=== PATIENT | female | born 2000 | race Caucasian/White ===

== ENCOUNTER 2019-07-26 19:21 | Observation (INO) ==
--- OUTSIDE RECORDS SUMMARY | 2019-07-26 19:23 | External Medical Summary | Continuity of Care Document ---
:2000 Author Name Ivon Eldridge Address Unavailable Unavailable , Care Team Providers Name Role Phone Unavailable Unavailable Unavailable Yossi Ayers M.D. Unavailable [email or web address] Yossi Ham PA-C Unavailable [email or web address] PCP, UNKNOWN Unavailable Unavailable Unavailable Unavailable Unavailable Problems Acute conjunctivitis (372.00) (H10.30) Acute pharyngitis (462) (J02.9) Acute otitis media (382.9) (H66.90) Acute sinusitis (461.9) (J01.90) Allergies and Adverse Reactions No Known Allergies (Allergy) Medications Ofloxacin 0.3 % Ophthalmic Solution; ins till 1-2 gtt in bilateral eyes tid for 5-7 days Chente Ayers Start: 27-Jun-2010 Quantity: 1 5 ML Bottle Refills: 0 Amoxicillin 250 MG Oral Capsule; 3 capsules twice a da y for ten days. KIRIT Ham Start: 14-Jul-2010 Quantity: 60 Refills: 0 Procedures Procedures not documented Immunizations Hepatitis B On: 2000 0:00 Hepatitis B On: 2000 0:00 Polio On: 1998 0:00 HIB On: 1998 0:00 DTaP On: 1998 0:00 Polio On: 06-Jan-1999 0:00 HIB On: 06-Jan-1999 0:00 DTaP On: 06-Jan-1999 0:00 Comvax On: 11-Mar-1999 0:00 Polio On: 11-Mar-1999 0:00 DTaP On: 11-Mar-1999 0:00 Varicella On: 05-Oct-1999 0:00 MMR On: 05-Oct-1999 0:00 HIB On: 03-Nov-1999 0:00 DTaP On: 20-Feb-2000 0:00 Polio On: 07-Oct-2003 0:00 DTaP On: 07-Oct-2003 0:00 MMR On: 07-Oct-2003 0:00 Varicella On: 10-Nov-2009 16:05 Lot #: [id number], [employer] Tdap (Adacel) On: 10-Nov-2009 16:05 Lot #: [id number], [employer] Meningo (Menactra) On: 10-Nov-2009 16:05 Lot #: [id number], [employer] HPV (Gardasil) On: 10-Nov-2009 16:05 Lot #: [id number], [employer] HPV (Gardasil) On: 12-Jan-2010 15:28 Lot #: [id number], [employer] Plan of Treatment Planned Observations Planned Goals not documented Results No Known Results Results not documented
--- OUTSIDE RECORDS SUMMARY | 2019-07-26 19:24 | External Medical Summary | Continuity of Care Document ---
:2000 Author Name Ivon Eldridge Address Unavailable Unavailable , Care Team Providers Name Role Phone Unavailable Unavailable Unavailable Yossi Ayers M.D. Unavailable [email or web address] Yossi Ham PA-C Unavailable [email or web address] PCP, UNKNOWN Unavailable Unavailable Unavailable Unavailable Unavailable Problems Acute sinusitis (461.9) (J01.90) Acute otitis media (382.9) (H66.90) Acute pharyngitis (462) (J02.9) Acute conjunctivitis (372.00) (H10.30) Allergies and Adverse Reactions No Known Allergies [...] On: 1998 0:00 Polio On: 1998 0:00 DTaP On: 1998 0:00 HIB On: 1998 0:00 Polio On: 06-Jan-1999 0:00 DTaP On: 06-Jan-1999 0:00 HIB On: 06-Jan-1999 0:00 Comvax On: 11-Mar-1999 0:00 Polio On: 11-Mar-1999 0:00 DTaP On: 11-Mar-1999 0:00 MMR On: 05-Oct-1999 0:00 Varicella On: 05-Oct-1999 0:00 HIB On: 03-Nov-1999 0:00 DTaP On: 20-Feb-2000 0:00 Polio On: 07-Oct-2003 0:00 DTaP On: 07-Oct-2003 0:00 MMR On: 07-Oct-2003 0:00 Varicella On: 10-Nov-2009 16:05 Lot #: [id number], [employer] Tdap (Adacel) On: 10-Nov-2009 16:05 Lot #: [id number], [employer] Meningo (Menactra) On: 10-Nov-2009 16:05 Lot #: [id number], [employer] PA[employer] HPV (Gardasil) On: 10-Nov-2009 16:05 Lot #: [id number], [employer] HPV (Gardasil) On: 12-Jan-2010 15:28 Lot #: [id number], [employer] Plan of Treatment Planned Observations Planned Goals not documented Results No Known Results Results not documented
[2019-07-26] MEDS ORDERED: SODIUM CHLORIDE 0.9% 1000ML 1,000 ML IV ONE (19:35)
--- NOTE | 2019-07-26 19:43 | Emergency Department Note ---
ED Provider Note NAME: HARPAL CALL AGE: 18 SEX: F : 2000 ARRIVES VIA: Walk-In INFORMANT: Patient ED PROVIDER(S): Jay Huffman DO CHIEF COMPLAINT: Loss of vision of left lateral eye HPI: Patient is a 18-year-old female with no significant past medical history that presents the ER for loss of vision out of her left lateral eye. She notes that she was cleaning her car when this occurred. It lasted for about 5 minut es. When it occurred she had paresthesias in her left hand circumferentially tracking up to the left mid forearm. She denies any weakness. No chest pain shortness of breath. No headache. No nausea vomiting or diarrhea. Denies any fevers. No significant past medical history. She does take control. There was no exacerbating or remitting factors. She has never had this before. Again she had no headache prior during or after this instance. Denies any eye pain. No redness in her eyes. No trauma. ROS: See above HPI for pertinent positives & negatives. A total of [10] systems reviewed and were otherwise negative. PAST MEDICAL HISTORY:denies PAST SURGICAL HISTORY:denies FAMILY HISTORY:[place] syndrome SOCIAL HISTORY:none HOME MEDICATIONS: control ALLERGIES:See Below VITALS:See Below PHYSICAL EXAMINATION: GENERAL: Sitting up in bed, alert, well appearing, well nourished, no distress, non-toxic EYE EXAM: normal conjunctiva. PERRL and EOM's intact. OROPHARYNX: no exudate, no erythema, lips, buccal mucosa, and tongue normal and mucous membranes are moist NECK: supple, no nuchal rigidity, no adenopathy, non-tender LUNGS: Clear to auscultation. Normal chest wall mechanics HEART: no murmurs, S1 normal and S2 normal ABDOMEN: abdomen soft, non-tender, normo-active bowel sounds, no masses, no rebound or guarding. BACK: Back is symmetrical on inspection and there is no deformity, no midline tenderness, no CVA tenderness. SKIN: no rashes and no bruising UPPER EXTREMITIES: upper extremities are grossly normal. LOWER EXTREMITIES: No pitting edema. NEURO EXAM: Normal sensorium, cranial nerves II-XII intact, normal speech, no weakness of arms, no weakness of legs. No drift. Finger to nose intact. Gross sensation intact. Rapid alternating movements of upper extremities intact. [id number] intact. Ambulates of difficulty. MEDICAL DECISION MAKING: Patient is a 18-year-old female with no significant past medical history that presents the ER for loss of vision out of her left lateral eye along with paresthesias of the left hand tracking to left mid forearm. Symptoms lasted for 5 minutes. She is completely neurologically intact on my exam. Vitals are stable. No significant past medical history. No fevers. CT head along with CT angios of the head and neck were negative. Chest x-ray was unremarkable. EKG was noncontributory. Labs show no significant leukocytosis or anemia. INR was unremarkable. BMP with mild hypokalemia. LFTs, troponin and bilirubin was unremarkable. After the results of the CT imaging I discussed the case with neurology. They recommend bringing the patient in for MRI as well as possible e cho as this will be unable to be performed as an outpatient. Discussed with Dr. Alvarez and patient was accepted to the hospitalist. Triage Nursing notes reviewed. Prior medical records reviewed Vital Signs: reviewed and remarkable for no significant abnormalities Differential diagnosis: Differential Diagnosis includes but is not limited to ischemic Stroke, hemorrhagic stroke, bells palsy, mass, neoplasm, migraine headache, seizure, subarachnoid hemorrhage, TIA, and transient global amnesia. ER treatment provided: See below Diagnostics interpreted by me: ECG: Sinus rhythm rate of 78 Normal axis No PVCs Right bundle branch block Cardiac Monitoring: Sinus rhythm rate of 71 Laboratory studies: As stated above and show below. Imaging studies: CT of the head was negative. CTA of the head and neck were both negative. Chest x-ray without any focal infiltrate. Consultation(s): Dr. Martinez for evaluation for observation. Dr. Dunn from neurology recommends observation. ED COURSE: Critical Care: None Impression & Plan Acute loss of vision, Arm paresthesia, left Past Med/Surg History Social History Preferred Language: Guatemalan Feels Safe at Home: Yes Smoking Status: Never smoker Results & Data Vital Signs Vital Signs - 24 hr 07/26/19 19:24 07/26/19 19:53 07/26/19 19:55 Temperature 36.7 C Temperature Source Oral Pulse Rate 78 91 H 84 Pulse Rate from SpO2 Sensor Respiratory Rate 18 22 21 Respiratory Effort / Characteristics Non-Labored Respiratory Depth Normal Blood Pressure 129/84 131/89 Blood Pressure Mean 99 95 Pulse Oximetry 97 Oxygen Delivery Method Room Air Sepsis Recent Fever Within 48 Hours No Sepsis Action Taken by Nursing No Action Required 07/26/19 20:00 07/26/19 20:01 07/26/19 20:30 Temperature Temperature Source Pulse Rate 82 88 78 Pulse Rate from SpO2 Sensor 84 88 78 Respiratory Rate 20 17 16 Respiratory Effort / Characteristics Respiratory Depth Blood Pressure 124/82 117/70 Blood Pressure Mean 88 78 Pulse Oximetry 100 100 100 Oxygen Delivery Method Sepsis Recent Fever Within 48 Hours Sepsis Action Taken by Nursing 07/26/19 20:31 Temperature Temperature Source Pulse Rate 80 Pulse Rate from SpO2 Sensor 82 Respiratory Rate 15 Respiratory Effort / Characteristics Respiratory Depth Blood Pressure Blood Pressure Mean Pulse Oximetry 100 Oxygen Delivery Method Sepsis Recent Fever Within 48 Hours Sepsis Action Taken by Nursing Laboratory Data Result diagrams: 07/26/19 20:00 07/26/19 20:00 Lab Results 07/26/19 07/26/19 07/26/19 Range/Units 20:00 20:00 20:00 WBC 6.21 (4.8-10.8) K/uL RBC 4.30 (4.2-5.4) M/uL Hgb 12.3 (12.0-16.0) g/dL Hct 36.0 L (37-47) % MCV 83.7 (80-100) fL MCH 28.6 (25-34) pg MCHC 34.2 (32-36) g/dL RDW Std Deviation 40.4 (36.4-46.3) fL RDW Coeff of [place] 13.5 (11.5-14.5) % Plt Count 199 (130-400) K/uL MPV 9.7 (7.4-10.4) fL Immature Gran % (Auto) 0.2 % Neut % (Auto) 53.8 % Lymph % (Auto) 40.1 % [place] % (Auto) 5.0 % Eos % (Auto) 0.6 % Baso % (Auto) 0.3 % Immature Gran # (Auto) 0.01 (0.00-0.02) K/uL Neut # (Auto) 3.34 (1.4-6.5) K/uL Lymph # (Auto) 2.49 (1.2-3.4) K/uL [place] # (Auto) 0.31 (0.11-0.59) K/uL Eos # (Auto) 0.04 (0-0.5) K/uL Baso # (Auto) 0.02 (0-0.2) K/uL PT 10.5 (9.0-12.0) Seconds INR 1.0 (0.9-1.1) APTT 24.7 (21.0-31.0) Seconds PTT Ratio 0.9 Sodium 138 (136-145) mmol/L Potassium 3.2 L (3.5-5.1) mmol/L Chloride 107 (98-107) mmol/L Carbon Dioxide 24 (21-32) mmol/L Anion Gap 7.0 (3-11) BUN 10 (7-18) mg/dl Creatinine 0.64 (0.6-1.2) mg/dl Est Cr Clr Drug Dosing 124.4 ml/min Est GFR ( Amer) 148.9 Est GFR (Non-Af Amer) 128.5 BUN/Creatinine Ratio 15.5 (10-20) Glucose 82 (70-99) mg/dl POC Glucose (70-99) mg/dl Calcium 9.1 (8.5-10.1) mg/dl Magnesium 2.0 (1.8-2.4) mg/dl Total Bilirubin 0.2 (0.2-1) mg/dl AST 10 L (15-37) U/L ALT 19 (12-78) U/L Alkaline Phosphatase 43 L (45-117) U/L Troponin I < 0.015 (0-0.045) ng/ml Total Protein 7.4 (6.4-8.2) gm/dl Albumin 3.9 (3.4-5.0) gm/dl Globulin 3.5 (2.5-4.0) gm/dl Albumin/Globulin Ratio 1.1 (0.9-2) POC Ur Test (NEG) 07/26/19 07/26/19 Range/Units 20:00 20:59 WBC (4.8-10.8) K/uL RBC (4.2-5.4) M/uL Hgb (12.0-16.0) g/dL Hct (37-47) % MCV (80-100) fL MCH (25-34) pg MCHC (32-36) g/dL RDW Std Deviation (36.4-46.3) fL RDW Coeff of [place] (11.5-14.5) % Plt Count (130-400) K/uL MPV (7.4-10.4) fL Immature Gran % (Auto) % Neut % (Auto) % Lymph % (Auto) % [place] % (Auto) % Eos % (Auto) % Baso % (Auto) % Immature Gran # (Auto) (0.00-0.02) K/uL Neut # (Auto) (1.4-6.5) K/uL Lymph # (Auto) (1.2-3.4) K/uL [place] # (Auto) (0.11-0.59) K/uL Eos # (Auto) (0-0.5) K/uL Baso # (Auto) (0-0.2) K/uL PT (9.0-12.0) Seconds INR (0.9-1.1) APTT (21.0-31.0) Seconds PTT Ratio Sodium (136-145) mmol/L Potassium (3.5-5.1) mmol/L Chloride (98-107) mmol/L Carbon Dioxide (21-32) mmol/L Anion Gap (3-11) BUN (7-18) mg/dl Creatinine (0.6-1.2) mg/dl Est Cr Clr Drug Dosing ml/min Est GFR ( Amer) Est GFR (Non-Af Amer) BUN/Creatinine Ratio (10-20) Glucose (70-99) mg/dl POC Glucose 78 (70-99) mg/dl Calcium (8.5-10.1) mg/dl Magnesium (1.8-2.4) mg/dl Total Bilirubin (0.2-1) mg/dl AST (15-37) U/L ALT (12-78) U/L Alkaline Phosphatase (45-117) U/L Troponin I (0-0.045) ng/ml Total Protein (6.4-8.2) gm/dl Albumin (3.4-5.0) gm/dl Globulin (2.5-4.0) gm/dl Albumin/Globulin Ratio (0.9-2) POC Ur Test NEG (NEG) Administered Medications Discontinued Medications Sodium Chloride (Nss 1000ml) 1,000 mls @ 999 mls/hr IV .Q1H1M ONE Stop: 07/26/19 20:35 Last Infusion: 07/26/19 21:11 Dose: 0 mls/hr Documented by: [id number] Admin: 07/26/19 20:06 Dose: 999 mls/hr Documented by: [id number] Discharge Plan Visit Data Chief Complaint: Neuro Symptoms/Deficit Stated Complaint: L EYE LOSS OF VISION, LEFT HAND TINGLING ED Provider: Jay Huffman Discharge Problem: Acute loss of vision, Arm paresthesia, left Forms Stand Alone Forms: [facility] [place] Communication Prescriptions Prescriptions: No Action drospirenone-ethinyl estradiol 3-0.03 mg tablet 1 tab PO DAILY RF: 0 Discharge Problem: Acute loss of vision Qualifiers: Laterality: left Qualified Code(s): H53.132 - Sudden visual loss, left eye
[2019-07-26 20:10] LABS: Basophils # (auto) 0.02 K/uL (0-0.2); Basophils % (auto) 0.3 %; Eosinophils # (auto) 0.04 K/uL (0-0.5); Eosinophils % (auto) 0.6 %; Hemoglobin 12.3 g/dL (12.0-16.0); Immature Granulocytes # (auto) 0.01 K/uL (0.00-0.02); Immature Granulocytes % (auto) 0.2 %; Lymphocytes # (auto) 2.49 K/uL (1.2-3.4); Lymphocytes % (auto) 40.1 %; Mean Corpuscular Hemoglobin 28.6 pg (25-34); Mean Corpuscular Hgb Conc 34.2 g/dL (32-36); Mean Corpuscular Volume 83.7 fL (80-100); Mean Platelet Volume 9.7 fL (7.4-10.4); Monocytes # (auto) 0.31 K/uL (0.11-0.59); Neutrophils # (auto) 3.34 K/uL (1.4-6.5); Neutrophils % (auto) 53.8 %; Platelet Count 199 K/uL (130-400); RDW Coefficient of Variation 13.5 % (11.5-14.5); RDW Standard Deviation 40.4 fL (36.4-46.3); White Blood Count 6.21 K/uL (4.8-10.8)
[2019-07-26 20:19] LABS: Partial Thromboplastin Ratio 0.9; Partial Thromboplastin Time 24.7 Seconds (21.0-31.0); Prothrombin Time 10.5 Seconds (9.0-12.0)
--- NOTE | 2019-07-26 20:27 | XRay Report ---
XR chest 1V portable HISTORY: Stroke symptoms. COMPARISON: None. FINDINGS: The lungs are clear. Cardiac silhouette is normal in size. No pleural effusions. No pneumot horax. IMPRESSION: No acute process. ACT 112: Negative or not required by law. Electronically signed by: Grant Faith M.D. 07/26/2019 8:26 PM
[2019-07-26 20:28] LABS: Alanine Aminotransferase 19 U/L (12-78); Albumin Level 3.9 gm/dl (3.4-5.0); Aspartate Aminotransferase 10 U/L (15-37); BUN Creatinine Ratio 15.5 (10-20); Blood Urea Nitrogen 10 mg/dl (7-18); Calcium 9.1 mg/dl (8.5-10.1); Carbon Dioxide 24 mmol/L (21-32); Chloride 107 mmol/L (98-107); Creatinine Clr Calc Pharmacy 124.4 ml/min; Est GFR (African American) 148.9; Est GFR (Non-African American) 128.5; Glucose 82 mg/dl (70-99); Potassium 3.2 mmol/L (3.5-5.1); Sodium 138 mmol/L (136-145)
[2019-07-26 20:32] LABS: Albumin Globulin Ratio 1.1 (0.9-2); Alkaline Phosphatase 43 U/L (45-117); Bilirubin,Total 0.2 mg/dl (0.2-1); Globulin 3.5 gm/dl (2.5-4.0); Total Protein 7.4 gm/dl (6.4-8.2); Troponin I < 0.015 ng/ml (0-0.045)
--- NOTE | 2019-07-26 21:28 | CT Scan Report ---
HEAD CT NONCONTRAST CT DOSE: 992.47 mGy.cm HISTORY: loss of vision l eye TECHNIQUE: Multiaxial CT images of the head were performed without the use of intravenous contrast. A utomated exposure control was utilized for this study. A dose lowering technique was utilized adheri ng to the principles of ALARA. Comparison: None. Findings: The paranasal sinuses and mastoid air cells are clear. The calvarium and skull base are int act. The ventricles and sulci are within normal limits. There is no mass, hematoma, midline shift, or acute infarct. The orbits are unremarkable. Impression: No acute intracranial abnormality. ACT 112: Negative or not required by law. Electronically signed by: Grant Faith M.D. 07/26/2019 9:27 PM
--- NOTE | 2019-07-26 21:35 | CT Scan Report ---
HEAD & NECK CTA HISTORY: loss of vision l eye TECHNIQUE: Multiaxial CT images of the head were performed following the intravenous administration o f contrast to evaluate the major cerebral vessels. Multiaxial CT images of the neck were also perform ed following the intravenous administration of contrast to evaluate the major cervical vessels. Maxim um intensity projection images were also obtained. A dose lowering technique was utilized adhering to the principles of ALARA. COMPARISON: None. FINDINGS: There is no mass, hematoma, midline shift, or acute infarct. Visualized intracranial internal carotid arteries, distal vertebral arteries, and basilar artery are widely patent. There is no significant s tenosis, occlusion, or aneurysm seen within the bilateral ACAs, MCAs, or prosthetic technician. The major dural venous sinuses are patent. The aortic arch and proximal great vessels are widely patent. There is no significant stenosis, occ lusion, or dissection identified within the bilateral common carotid, internal carotid, or vertebral arteries. IMPRESSION: 1. No significant stenosis, occlusion, or aneurysm within the [place]. 2. No significant stenosis, occlusion, or dissection identified within the carotid or vertebral arter ies. ACT 112: Negative or not required by law. Electronically signed by: Grant Faith M.D. 07/26/2019 9:33 PM
--- NOTE | 2019-07-26 21:35 | CT Scan Report ---
HEAD & NECK CTA HISTORY: loss of vision l eye TECHNIQUE: Multiaxial CT images of the head were performed following the intravenous administration o f contrast to evaluate the major cerebral vessels. Multiaxial CT images of the neck were also perform ed following the intravenous administration of contrast to evaluate the major cervical vessels. Maxim um intensity projection images were also obtained. A dose lowering technique was utilized adhering to the principles of ALARA. COMPARISON: None. FINDINGS: There is no mass, hematoma, midline shift, or acute infarct. Visualized intracranial internal carotid arteries, distal vertebral arteries, and basilar artery are widely patent. There is no significant s tenosis, occlusion, or aneurysm seen within the bilateral ACAs, MCAs, or corporate attorney. The major dural venous sinuses are patent. The aortic arch and proximal great vessels are widely patent. There is no significant stenosis, occ lusion, or dissection identified within the bilateral common carotid, internal carotid, or vertebral arteries. IMPRESSION: 1. No significant stenosis, occlusion, or aneurysm within the [place]. 2. No significant stenosis, occlusion, or dissection identified within the carotid or vertebral arter ies. ACT 112: Negative or not required by law. Electronically signed by: Grant Faith M.D. 07/26/2019 9:33 PM
[2019-07-26] MEDS ORDERED: POTASSIUM CHLORIDE 20 MEQ TABCR PO STA (22:07)
[2019-07-26] MEDS ORDERED: ASPIRIN 81 MG CHEW PO STA (22:37)
[2019-07-26] MEDS ORDERED: KETOROLAC TROMETHAMINE 15 MG/ML VIAL IV STA (22:46)
[2019-07-26] MEDS ORDERED: POTASSIUM CHLORIDE 40 MEQ in SODIUM CHLORIDE 0.9% 1000ML 1,000 ML IV ONE (23:53)
[2019-07-26] MEDS ORDERED: IBUPROFEN 200 MG TAB PO PRN (23:53)
[2019-07-26] MEDS ORDERED: PROMETHAZINE HCL 12.5 MG in SODIUM CHLORIDE 0.9% 50 ML IV PRN (23:53)
[2019-07-26] MEDS ORDERED: ACETAMINOPHEN 325 MG TAB PO PRN (23:53)
[2019-07-26] MEDS ORDERED: LORazepam 0.25 MG/0.5 ML VIAL IV PRN (23:53)
--- NOTE | 2019-07-26 23:55 | History & Physical Report ---
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 Hold patient OCP for now given risk for ischemic stroke in patients with atypical migraine. Neurology consult RE TIA symptoms (ER provider already in touch with Dr. Dunn who recommends MRI brain and TTE in a.m.). Replace potassium DVT prophylaxis. SCDs Full code Patient's mother requesting updates for providers. Ms. Iris Pantoja, contact #[phone]. Text document was generated using [employer] voice recognition software. It may contain grammatical or spelling errors. Kindly contact undersigned for clarification of any documentation item in quest ion. History of Present Illness Chief Complaint: Vision loss left, left upper extremity numbness Primary Care Provider: Dr. Bales History obtained from patient, family, and records. Medical history significant for Lyme disease status post treatment, anorexia nervosa as per records. Hours ago patient noted loss of vision on the lateral side of her left eye later followed by transient numbness in the left hand going to the left midforearm. Symptoms later resolved after a few minutes and followed by achy generalized headache symptoms. No chest pain, no S OB. No prior episodes in the past. Medical History as above Surgical History : None Family History : Migraine, alcoholism, heart disease Personal/Social history : Non-smoker, no EtOH intake, student Allergies Allergy/AdvReac Type Severity Reaction Status Date / Time CODIENE-VOMITING AdvReac Unknown Vomiting Uncoded 07/26/19 20:59 Home Medications Home Medications Medication Instructions Recorded Confirmed Type drospirenone-ethinyl estradiol 1 tab PO DAILY 07/26/19 07/26/19 History Past Med/Surg History Social History Preferred Language: Trinidadian Communication Ability: Effective Beliefs That Will Affect Care: None Current Living Situation: Family Other Information That Helps Us Care for You: No Feels Safe at Home: Yes Safety Concerns: Feels Safe At This Time Smoking Status: Never smoker Hx Alcohol Use: Yes Hx Substance Use: No Review of Systems Review of Systems: As per HPI, all 10 systems reviewed, all other ROS negative Physical Exam Physical Exam: GENERAL: Comfortable, slightly anxious, no respiratory distress SKIN: Normal color, warm HEENT: [place] palpebral conjunctivae, no ptosis, dry buccal mucosa NECK : Supple, no tenderness CHEST : CTA, no tenderness HEART : RRR, no obvious murmurs ABDOMEN: Some distention, nontender EXTREMITIES : No LE swelling/tenderness, no other conspicuous deformities noted NEUROLOGIC : Coherent, visual acuity on both eyes with hand-held card within normal limits, no facial asymmetry, no other gross focality Results & Data Vital Signs (Past 12 Hours) Vital Signs Temp Pulse Resp BP Pulse Ox 07/26/19 22:31 94 H 15 97 07/26/19 22:30 94 H 19 116/81 99 07/26/19 22:24 92 H 16 119/85 97 07/26/19 22:18 101 H 22 99 07/26/19 22:17 89 15 107/94 99 07/26/19 22:15 99 07/26/19 20:31 80 15 100 07/26/19 20:30 78 16 117/70 100 07/26/19 20:01 88 17 100 07/26/19 20:00 82 20 124/82 100 07/26/19 19:55 84 21 07/26/19 19:53 91 H 22 131/89 07/26/19 19:24 36.7 C 78 18 129/84 97 Laboratory Results Laboratory Results WBC 6.21 K/uL (4.8-10.8) 07/26/19 20:00 RBC 4.30 M/uL (4.2-5.4) 07/26/19 20:00 Hgb 12.3 g/dL (12.0-16.0) 07/26/19 20:00 Hct 36.0 % (37-47) L 07/26/19 20:00 MCV 83.7 fL (80-100) 07/26/19 20:00 MCH 28.6 pg (25-34) 07/26/19 20:00 MCHC 34.2 g/dL (32-36) 07/26/19 20:00 RDW Std Deviation 40.4 fL (36.4-46.3) 07/26/19 20:00 RDW Coeff of [place] 13.5 % (11.5-14.5) 07/26/19 20:00 Plt Count 199 K/uL (130-400) 07/26/19 20:00 MPV 9.7 fL (7.4-10.4) 07/26/19 20:00 Immature Gran % (Auto) 0.2 % 07/26/19 20:00 Neut % (Auto) 53.8 % 07/26/19 20:00 Lymph % (Auto) 40.1 % 07/26/19 20:00 [place] % (Auto) 5.0 % 07/26/19 20:00 Eos % (Auto) 0.6 % 07/26/19 20:00 Baso % (Auto) 0.3 % 07/26/19 20:00 Immature Gran # (Auto) 0.01 K/uL (0.00-0.02) 07/26/19 20:00 Neut # (Auto) 3.34 K/uL (1.4-6.5) 07/26/19 20:00 Lymph # (Auto) 2.49 K/uL (1.2-3.4) 07/26/19 20:00 [place] # (Auto) 0.31 K/uL (0.11-0.59) 07/26/19 20:00 Eos # (Auto) 0.04 K/uL (0-0.5) 07/26/19 20:00 Baso # (Auto) 0.02 K/uL (0-0.2) 07/26/19 20:00 PT 10.5 Seconds (9.0-12.0) 07/26/19 20:00 INR 1.0 (0.9-1.1) 07/26/19 20:00 APTT 24.7 Seconds (21.0-31.0) 07/26/19 20:00 PTT Ratio 0.9 07/26/19 20:00 Sodium 138 mmol/L (136-145) 07/26/19 20:00 Potassium 3.2 mmol/L (3.5-5.1) L 07/26/19 20:00 Chloride 107 mmol/L (98-107) 07/26/19 20:00 Carbon Dioxide 24 mmol/L (21-32) 07/26/19 20:00 Anion Gap 7.0 (3-11) 07/26/19 20:00 BUN 10 mg/dl (7-18) 07/26/19 20:00 Creatinine 0.64 mg/dl (0.6-1.2) 07/26/19 20:00 Est Cr Clr Drug Dosing 124.4 ml/min 07/26/19 20:00 Est GFR ( Amer) 148.9 07/26/19 20:00 Est GFR (Non-Af Amer) 128.5 07/26/19 20:00 BUN/Creatinine Ratio 15.5 (10-20) 07/26/19 20:00 Glucose 82 mg/dl (70-99) 07/26/19 20:00 POC Glucose 78 mg/dl (70-99) 07/26/19 20:00 Calcium 9.1 mg/dl (8.5-10.1) 07/26/19 20:00 Magnesium 2.0 mg/dl (1.8-2.4) 07/26/19 20:00 Total Bilirubin 0.2 mg/dl (0.2-1) 07/26/19 20:00 AST 10 U/L (15-37) L 07/26/19 20:00 ALT 19 U/L (12-78) 07/26/19 20:00 Alkaline Phosphatase 43 U/L (45-117) L 07/26/19 20:00 Troponin I < 0.015 ng/ml (0-0.045) 07/26/19 20:00 Total Protein 7.4 gm/dl (6.4-8.2) 07/26/19 20:00 Albumin 3.9 gm/dl (3.4-5.0) 07/26/19 20:00 Globulin 3.5 gm/dl (2.5-4.0) 07/26/19 20:00 Albumin/Globulin Ratio 1.1 (0.9-2) 07/26/19 20:00 TSH 0.795 uIu/ml (0.300-4.500) 07/26/19 20:00 POC Ur Test NEG (NEG) 07/26/19 20:[address] head: No acute intracranial abnormality CT head/neck angio: 1. No significant stenosis, occlusion, or aneurysm within the [place]. 2. No significant stenosis, occlusion, or dissection identified within the carotid or vertebral arteries. Chest x-ray : No acute process EKG as per my interpretation : Rate 80, NSR, normal axis incomplete RBBB, T wave abnormalities lateral leads Code Status & VTE Plan VTE Prophylaxis Plan VTE Prophylaxis will be ordered: Yes
[2019-07-27 00:23] LABS: Lyme Ab IgG w/WB Rflx Negative (Negative); Lyme Ab IgM w/WB Rflx Negative (Negative)
[2019-07-27 05:51] LABS: Appearance Urine Clear (Clear); Bilirubin Urine Negative (Negative); Blood Urine Negative (Negative); Color Urine Yellow; Glucose Urine UA Negative (Negative); Ketones Urine Negative (Negative); Leukocyte Esterase Urine Negative (Negative); Nitrite Urine Negative (Negative); Protein Urine Negative (Negative); Specific Gravity Urine 1.015 (1.000-1.030); Urobilinogen Urine Negative (Negative); pH Urine >= 9.0 (4.5-7.5)
[2019-07-27 05:53] LABS: Basophils # (auto) 0.03 K/uL (0-0.2); Basophils % (auto) 0.4 %; Eosinophils # (auto) 0.05 K/uL (0-0.5); Eosinophils % (auto) 0.6 %; Hematocrit (blood only) 34.6 % (37-47); Hemoglobin 11.7 g/dL (12.0-16.0); Immature Granulocytes # (auto) 0.01 K/uL (0.00-0.02); Immature Granulocytes % (auto) 0.1 %; Lymphocytes # (auto) 2.65 K/uL (1.2-3.4); Lymphocytes % (auto) 33.8 %; Mean Corpuscular Hemoglobin 28.4 pg (25-34); Mean Corpuscular Hgb Conc 33.8 g/dL (32-36); Mean Platelet Volume 9.9 fL (7.4-10.4); Monocytes # (auto) 0.41 K/uL (0.11-0.59); Monocytes % (auto) 5.2 %; Neutrophils % (auto) 59.9 %; Platelet Count 227 K/uL (130-400); RDW Coefficient of Variation 13.5 % (11.5-14.5); RDW Standard Deviation 41.5 fL (36.4-46.3); Red Blood Count 4.12 M/uL (4.2-5.4); White Blood Count 7.85 K/uL (4.8-10.8)
[2019-07-27 06:11] LABS: Amphetamines+Metham, Urine Neg (Neg); Barbiturates, Urine Neg (Neg); Benzodiazepine, Urine Neg (Neg); Cocaine, Urine Neg (Neg); MDMA (Ecstacy), Urine Neg (Neg); Methadone, Urine Neg (Neg); Opiate, Urine Neg (Neg); Phencyclidine, Urine Neg (Neg)
[2019-07-27 06:36] LABS: BUN Creatinine Ratio 11.3 (10-20); Blood Urea Nitrogen 7 mg/dl (7-18); Calcium 8.7 mg/dl (8.5-10.1); Carbon Dioxide 23 mmol/L (21-32); Chloride 112 mmol/L (98-107); Chol HDL Ratio 3; Cholesterol 207 mg/dl (0-200); Creatinine Clr Calc Pharmacy 143.8 ml/min; Est GFR (African American) > 150.0; Est GFR (Non-African American) 131.9; Glucose 85 mg/dl (70-99); HDL Cholesterol 64 mg/dl; LDL Cholesterol Calculated 121 mg/dl; Potassium 4.3 mmol/L (3.5-5.1); Sodium 139 mmol/L (136-145); Triglycerides 110 mg/dl (0-150); VLDL Cholesterol 22 mg/dl
[2019-07-27] MEDS ORDERED: ASPIRIN 81 MG ECTAB PO SCH (09:00)
--- NOTE | 2019-07-27 09:26 | Neurology Consultation ---
Date of Consultation July 27, 2019 Assessment & Plan (1) Migraine with aura: This patient's clinical presentation seems to fit very well with migraine with aura. However, she denies a history of migraine, recurrent headaches, or similar associated symptoms in the past. Although her initial evaluation in the emergency department including CT of the head and CT angiography of the head and neck were unremarkable, further evaluation including MRI of the brain and echocardiography have been recommended. She is currently asymptomatic and has an intact neurological examination. Her headache and associated visual and sensory symptoms have resolved. The likelihood of stroke seems small. Also, this patient does not have a history of DVT, PE, or thromboembolism. She has been taking an estrogen-containing oral contraceptive for the past 2 years without any reported complication. She does not smoke cigarettes. She is normotensive, euglycemic and afebrile. Follow-up with results of brain MRI and echocardiography when available. If MRI does reveal evidence of an acute infarct would recommend additional lab evaluation for prothrombotic/hypercoagulable disorders. If MRI is negative for acute infarct would discontinue daily low-dose aspirin. Would recommend discontinuation of her estrogen-containing oral contraceptive given the potential increased risk of stroke. Patient will need to monitor for symptomatic recurrence of migrainous headache, associated aura, and other potential associated neurological symptoms. Would consider preventive medication if necessary. Also, if her MRI is negative for infarct would consider a trial of a triptan for acute migraine treatment going forward. (2) Stroke-like symptoms: As alluded to above, patient's presentation is also potentially consistent with a TIA or stroke localizing to the right cerebral hemisphere (visual and somatosensory cortex). A brain MRI and echocardiogram have been recommended for further assessment of this possibility. However, patient's symptom evolution seems to fit very well with a cortical spreading depression of Price, which is the hypothesized mechanism underlying migrainous aura and associated headache. Further recommendations regarding migraine with aura are as suggested above. Please follow-up with results of brain MRI and echocardiogram as described above. Recommendation pertaining to discontinuation of this patient's estrogen- containing oral contraceptive are as described above. History of Present Illness Reason for Consultation: Left upper extremity numbness Requesting Physician: Alireza Granger MD Attending Physician: Leticia Hough MD History of Present Illness The patient is a 18-year-old female with a chief complaint of vision loss to the left and associated left upper extremity numbness. Her symptoms began acutely early yesterday evening while she was outside cleaning her car at home. Initially, she had the perception of darkness or loss of her visual field off to the left, affecting both eyes. The symptom was minimal at first, but progressing over the next few minutes. She became concerned and walked into her house and sat on the couch. The vision disturbance abated in about 5 minutes but was followed by paresthesias and numbness affecting the left hand in a circumferential fashion, up to the wrist. The symptom resolved within a few minutes and was then followed by a mild to moderate right frontal throbbing headache with mild associated nausea and light sensitivity. She did not have any neurological deficits during her assessment in the emergency department. A CT of the head was negative for hemorrhage or acute process. CT angiography of the head and neck were unremarkable as well. Imaging described in further detail below. She has received IV fluids, aspirin, and Toradol. Currently, the patient denies any symptomatic recurrence. Her headache has resolved. She denies any vision change, numbness, or weakness at this time. The patient does not recall having experienced a similar episode in the past. She denies a history of migraine although indicates that her sister experiences episodic migraine and is taking medication for this issue. The patient denies a personal history of stroke or thromboembolic disease such as DVT or PE. She has been taking an estrogen-containing OCP for about the past 2 years. She does not take any other prescription medications. Patient is otherwise physically healthy. She is a student at [employer]. She lives at home, locally, with her parents and has been unable to return to classes in light of the recent circ umstances pertaining to COVID19. Allergies Allergy/AdvReac Type Severity Reaction Status Date / Time CODIENE-VOMITING AdvReac Unknown Vomiting Uncoded 07/26/19 20:59 Home Medications Home Medications Medication Instructions Recorded Confirmed Type drospirenone-ethinyl estradiol 1 tab PO DAILY 07/26/19 07/26/19 History Patient History Medical History H/o Lyme disease Family History Sister Migraine Social History Preferred Language: German Communication Ability: Effective Beliefs That Will Affect Care: None Current Living Situation: Family Other Information That Helps Us Care for You: No Feels Safe at Home: Yes Safety Concerns: Feels Safe At This Time Smoking Status: Never smoker Hx Alcohol Use: Yes Hx Substance Use: No Review of Systems Constitutional: no fever and no chills Eyes: as per Subjective / HPI; no eye pain Ear, Nose, Mouth, Throat: no ear pain and no hearing loss Respiratory: no cough and no dyspnea Cardiovascular: no chest pain and no palpitations Gastrointestinal: as per Subjective / HPI and + nausea Genitourinary: no dysuria Musculoskeletal: + neck pain; no myalgia Mild associated neck pain, resolved Integumentary: no rash and no lesions Neurologic: as per Subjective / HPI Psychiatric: no depression and no anxiety Hematologic / Lymphatic: no easy bleeding and no easy bruising Physical Exam Physical Exam: The patient is a well-developed, well-nourished adult female. She is alert and fully oriented. Recent and remote memory intact. Attention and concentration normal. Patient exhibits a normal spontaneous speech pattern as well as an age-appropriate fund of knowledge. Visual richards full to confrontation. Visual acuity normal. Pupils equal round react to light and accommodation. Eye movements normal. There is no nystagmus, ptosis, or ophthalmoplegia. Facial sensation intact. There is no facial droop or weakness. Hearing intact. Palate elevates to midline. Shoulder shrug intact. Tongue protrudes to midline. Sensation intact all modalities in all 4 limbs. Deep tendon reflexes intact and symmetrical for the arms and legs. Plantar responses downgoing bilaterally. There is no dysdiadochokinesia or dysmetria [id number]-[id number] or hjuy-gl-vwaf bilaterally. Ophthalmoscopic examination reveals normal-appearing optic disks and posterior segments. No papilledema or hemorrhages. Carotid pulses normal bilaterally, no bruits to auscultation. Gait and station normal. Patient exhibits normal muscle strength and tone for all 4 limbs. No atrophy. No abnormal movements observed. Results & Data Vital Signs (Past 12 Hours) Vital Signs Temp Pulse Pulse Resp BP BP Pulse Ox 07/27/19 07:37 36.3 C L 77 16 99/63 L 97 07/27/19 07:07 76 07/27/19 03:31 36.8 C 83 16 99/60 L 98 07/26/19 23:59 36.7 C 79 20 07/26/19 23:32 90 07/26/19 22:31 94 H 15 97 07/26/19 22:30 94 H 19 116/81 99 07/26/19 22:24 92 H 16 119/85 97 07/26/19 22:18 101 H 22 99 07/26/19 22:17 89 15 107/94 99 07/26/19 22:15 99 07/26/19 20:31 80 15 100 Laboratory Results WBC 7.85, hemoglobin 11.7, hematocrit 34.6, platelet count 227, sodium 139, potassium 4.3, BUN 7, creatinine 0.59, glucose 85, calcium 8.7, magnesium 2.0, AST 10, ALT 19, troponin less than 0.015, triglycerides 110, cholesterol 207, LDL 121, VLDL 22, HDL 64, TSH 0.795, Lyme antibody screening negative. Diagnostic Findings A CT of the head is negative for hemorrhage or acute process. No evidence of hemorrhage, hydrocephalus, or obvious parenchymal abnormality. I reviewed the images as well as the radiologist's interpretation of this test. CT angiography of the head and neck negative for stenosis, occlusion, aneurysm, or dissection. I reviewed the images as well as the radiologist's interpretation of this test. An electrocardiogram completed yesterday reveals a normal sinus rhythm, 78 bpm. Unofficial report reviewed. Coding Level of Care Code 25426 Inpt Consult Level 5 Diagnoses Migraine with aura G43.109 Stroke-like symptoms R29.90
[2019-07-27] MEDS ORDERED: GADOBUTROL 7.5ML VIAL IV PRN (10:16)
--- NOTE | 2019-07-27 11:42 | Magnetic Resonance Report ---
MR brain wo/w con HISTORY: 18 years-old Female LUE weakness, rodriguez acute headache with left upper extremity weakness COMPARISON: MRA of the head of same day, CT head and CTA head 07/26/2019 TECHNIQUE: Multiplanar multisequence MRI of the brain was obtained both with and without the use of 5 .5 amount Gadavist FINDINGS: Last images demonstrate no gross extracranial abnormality. No restricted diffusion to suggest acute o r subacute infarct. Midline structures including the corpus callosum, brainstem, optic chiasm, pituit barron and pineal glands appear unremarkable on the sagittal T1 series. No cerebellar tonsillar herniati on. Imaged cervical spine is unremarkable. No acute intracranial hemorrhage, midline shift, abnormal extra-axial collection, hydrocephalus or in tracranial mass. There are no significant T2/FLAIR signal abnormalities of the brain parenchyma. No a bnormal intra-axial or extra-axial enhancement. Major vascular flow voids are patent and unremarkable . Mastoid air cells are clear. Orbits, soft tissues and calvarium are within normal limits. Paranasal sinuses are generally clear. IMPRESSION: 1. No acute intracranial abnormality. 2. No abnormal enhancement. ACT 112: Negative or not required by law. The above report was generated using voice recognition software. It may contain grammatical, syntax o r spelling errors. Electronically signed by: Aquilino Holloway M.D. 07/27/2019 11:41 AM
--- NOTE | 2019-07-27 11:45 | Magnetic Resonance Report ---
MR angio head wo con HISTORY: 18 years-old Female LUE weakness acute left upper extremity weakness COMPARISON: Brain MRI of same day, CTA of the head 07/26/2019 TECHNIQUE: MRI of the head was obtained without the use of IV contrast utilizing 3-D [id number] s equencing with MIP reformats. All measurements were obtained according to NASCET criteria. FINDINGS: The imaged bilateral internal carotid arteries are patent and unremarkable. The middle and anterior c erebral arteries also appear normal. The imaged bilateral vertebral arteries are patent and unremarka ble. Basilar and posterior cerebral arteries appear normal. There is no aneurysm, dissection, high-gr ted stenosis or proximal branch occlusion. IMPRESSION: Unremarkable MRA of the head. ACT 112: Negative or not required by law. The above report was generated using voice recognition software. It may contain grammatical, syntax o r spelling errors. Electronically signed by: Aquilino Holloway M.D. 07/27/2019 11:44 AM
--- NOTE | 2019-07-27 16:54 | Hospitalist Progress Note ---
Date of Service July 27, 2019 Assessment & Plan (1) Numbness and tingling in left arm: Admitted with transient vision loss, left eye and headache symptoms Symptom has completely resolved, No blurred vision or diplopia, no weakness or paresthesia No gait disturbance Appreciate input from neurology Possible atypical migraine Detail neuro imaging including CT head CTA of head and neck, MRI of brain, MRA of head shows no acute abnormality No further studies noted, He does not need to be on low-dose aspirin Recommend to change oral contraceptive from estrogen only to progesterone pills, which has lower risk of thromboembolic episodes Patient is updated Possible atrial septal defect: Transthoracic echocardiogram as above: Negative for right atrial contrast noted in the area of the medial interatrial septum. ASD cannot be excluded Consider transesophageal echocardiogram if further investigation is warranted. Inpatient VEENA was offered by cardiology Patient and her family wants to be discharged home today, will schedule with family physician for outpatient VEENA at [facility] cardiology suite Patient is discharged home today on stable condition Text document was generated using [employer] voice recognition software. It may contain grammatical or spelling errors. Kindly contact undersigned for clarification of any documentation item in question. Admission and Anticipated Discharge Date Admission Date: July 26, 2019 Subjective Awake and alert oriented x3, No weakness or paresthesia, no blurred vision no headache Patient remains completely asymptomatic, Fever or chills Very eager to be discharged home today MRI of brain shows no evidence of any acute CVA Transthoracic echo suggestive of atrial septal defect, patient will benefit with trans-esophageal echocardiogram Plan of care discussed with patient, and her parents Wants to have outpatient VEENA, Stable to be discharged home. Review of Systems Review of Systems: All systems reviewed & are unremarkable except as noted in HPI & below Constitutional: no fever, no chills and no problem reported Eyes: no diplopia, no eye pain, no worsening vision and no problem reported Respiratory: no cough, no dyspnea, no sputum production and no wheezing Cardiovascular: no chest pain, no palpitations, no lightheadedness, no syncope and no edema Neurologic: no gait abnormality, no unsteadiness, no generalized weakness, no loss of sensation, no numbness, no paresthesia, no lack of coordination, no tremor(s), no dizziness, no headache(s) and no problem reported Physical Exam Constitutional: WD/WN, vitals as above no acute distress Eyes: PERRL, conjunctivae normal, anicteric sclerae ENMT: external ear and nose normal, oropharynx normal Neck: trachea midline, no thyromegaly Respiratory: normal respiratory effort, lungs clear to auscultation Cardiovascular: RRR, no murmur, no edema Gastrointestinal (Abdomen): normal bowel sounds, soft, nontender, no hepatosplenomegaly Musculoskeletal: no cyanosis or clubbing, extremities motor strength 5/5 Skin: no rashes, warm and dry Neurologic: PERRL, EOMI, accommodation nl, no face palsy, no dysarthria Psychiatric: A+Ox3, euthymic affect Results & Data ([facility]) Vital Signs (Past 12 Hours) Vital Signs Temp Pulse Pulse Resp BP Pulse Ox 07/27/19 15:54 36.7 C 86 16 99/63 L 98 07/27/19 15:42 36.7 C 86 16 99/63 L 98 07/27/19 12:01 37.0 C 79 16 99/66 L 98 07/27/19 07:37 36.3 C L 77 16 99/63 L 97 07/27/19 07:[address] of the head is negative for hemorrhage or acute process. No evidence of hemorrhage, hydrocephalus, or obvious parenchymal abnormality. I reviewed the images as well as the radiologist's interpretation of this test. CT angiography of the head and neck negative for stenosis, occlusion, aneurysm, or dissection. I reviewed the images as well as the radiologist's interpretation of this test. An electrocardiogram completed yesterday reveals a normal sinus rhythm, 78 bpm. Unofficial report reviewed. MRI of brain: IMPRESSION: 1. No acute intracranial abnormality. 2. No abnormal enhancement. MRA of head: Unremarkable MRA of brain Echocardiogram: 07/27/2019 Normal left ventricular systolic function Ejection fraction 65-70% Normal right ventricular size and function Significant valvular pathology No evidence of [id number] in her atrial shunt with injection of agitated saline contrast. Negative for right atrial contrast noted in the area of the medial interatrial septum. ASD cannot be excluded Consider transesophageal echocardiogram if further investigation is warranted
--- NOTE | 2019-07-27 18:27 | Electrocardiogram Report ---
Test Reason : Blood Pressure : / mmHG Vent. Rate : 078 BPM Atrial Rate : 078 BPM P-R Int : 194 ms QRS Dur : 102 ms QT Int : 396 ms P-R-T Axes : 077 085 070 degrees QTc Int : 451 ms Normal sinus rhythm Possible Left atrial enlargement Incomplete right bundle branch block Nonspecific ST abnormality Abnormal ECG No previous ECGs available Confirmed by Gadiel Holbrook ([id number]) on 07/27/2019 6:26:40 PM Referred By: REFERRED SELF Confirmed By:Rigoberto Holbrook
--- NOTE | 2019-07-29 12:03 | Discharge Summary ---
Date of Service July 29, 2019 Admission HPI Per Admitting Provider History obtained from patient, family, and records. Medical history significant for Lyme disease status post treatment, anorexia nervosa as per records. Hours ago patient noted loss of vision on the lateral side of her left eye later followed by transient numbness in the left hand going to the left midforearm. Symptoms later resolved after a few minutes and followed by achy generalized headache symptoms. No chest pain, no S OB. No prior episodes in the past. Medical History as above Surgical History : None Family History : Migraine, alcoholism, heart disease Personal/Social history : Non-smoker, no EtOH intake, student Principal Diagnosis Numbness of Left side /with visual changes -resolved No evidence of TIA or CVA possible atypical migraine attack possible Atrial Septal Defect : Incidental finding an echocardiogram Discharge Exam Constitutional WD/WN, vitals as above no acute distress Eyes PERRL, conjunctivae normal, anicteric sclerae ENMT external ear and nose normal, oropharynx normal Neck trachea midline, no thyromegaly Respiratory normal respiratory effort, lungs clear to auscultation Cardiovascular RRR, no murmur, no edema Gastrointestinal (Abdomen) normal bowel sounds, soft, nontender, no hepatosplenomegaly Musculoskeletal no cyanosis or clubbing, extremities motor strength 5/5 Skin no rashes, warm and dry Neurologic PERRL, EOMI, accommodation nl, no face palsy, no dysarthria Psychiatric A+Ox3, euthymic affect Discharge Data Allergies Allergy/AdvReac Type Severity Reaction Status Date / Time CODIENE-VOMITING AdvReac Unknown Vomiting Uncoded 07/26/19 20:59 Consultations 07/26/19 22:12 ED Decision to Admit Stat 07/26/19 23:53 Consult Neurology Routine 07/27/19 11:42 Consult Anesthesiology Routine Ordered Studies 07/26/19 19:36 CT angio head w con Stat CT angio neck with con Stat CT head/brain wo con Stat 07/27/19 09:04 MR angio head wo con Routine MR brain wo/w con Routine Hospital Course (1) Numbness and tingling in left arm: Admitted with transient vision loss, left eye and headache symptoms Symptom has completely resolved, No blurred vision or diplopia, no weakness or paresthesia No gait disturbance Appreciate input from neurology Possible atypical migraine Detail neuro imaging including CT head CTA of head and neck, MRI of brain, MRA of head shows no acute abnormality No further studies noted, He does not need to be on low-dose aspirin Recommend to change oral contraceptive from estrogen only to progesterone pills, which has lower risk of thromboembolic episodes Patient is updated Possible atrial septal defect: Transthoracic echocardiogram as above: Negative for right atrial contrast noted in the area of the medial interatrial septum. ASD cannot be excluded Consider transesophageal echocardiogram if further investigation is warranted. Inpatient VEENA was offered by cardiology Patient and her family wants to be discharged home today, will schedule with family physician for outpatient VEENA at [facility] cardiology suite Patient is discharged home today on stable condition Text document was generated using [employer] recognition software. It may contain grammatical or spelling errors. Kindly contact undersigned for clarification of any documentation item in question. Total Time Total Time Spent Total Time Spent (In Minutes): Approximately 45 minutes Total Time Includes: Examination of the Patient, Discharge Planning, Medication Reconciliation and Communication With Other Providers Discharge Plan Discharge Items Patient Disposition: Home - Self-Care Reason For Visit: LUE NUMBNESS Discharge Diagnosis: Numbness of Left side /with visual changes -resolved No evidence of TIA or CVA possible atypical migraine attack possible Atrial Septal Defect noted in ECHO Activity: Resume your previous activity Non-emergency contact: Primary Care Provider Call non-emergency contact if: you have any medication questions Follow-up/Referrals: Megan Dao DO [Primary Care Provider] - (Hospital Follow up in 1 week ) Jason Moore DO [Oil Field Pipeline Supervisor] - Diet: Regular Addtl Attending Provider Instructions: please follow up with family physician in a week , call to schedule appointment you will need VEENA ( transesophageal Echo cardiogram ) -for evaluation of possible Atrial Septal defect can be scheduled through you family physician Dr Dao office Do not take Estrogen containing oral contraceptive Please Discuss with you family physician /Material Handler Floorperson for alternative Contraceptive Pending Studies at Discharge: Yes Studies:: TRANSESOPHAGEAL ECHO Stand-Alone Forms: My [employer], Smoking Cessation Medications and DC Order Prescriptions: Discontinued drospirenone-ethinyl estradiol 3-0.03 mg tablet 1 tab PO DAILY RF: 0 Discharge Orders: Discharge Order (Routine); Ordered 07/27/19 Ordered By: Leticia Hough Admission Data Admit Date/Time: 07/26/19 22:46 Attending Provider: Leticia Hough Admit Provider: Alireza Granger Primary Care Provider: Megan Dao Other Providers: Case Dunn Other Interventions: Discharge Summary Assessment (RN) Last Done: 07/27/19 15:54 DC Date/Time DO NOT enter until pt leaves facility: 07/27/19 16:13
== END 2019-07-27 16:13 | disposition home or self-care (01) ==
LOC: 2N 19:21 → ED 19:21 → 2N 22:54